=== PATIENT | female | born 1960 | race Caucasian/White ===

== ENCOUNTER → 2023-10-30 15:12 | Outpatient (REF) | payer OTHER, SELFPAY | LOC: HWRAD 15:12 | PROVIDERS: ATTENDING PHYSICIAN Internal Medicine | DX: Z13.820 Encounter for screening for osteoporosis (principal) | CPT/HCPCS: 77080 ==

== ENCOUNTER 2024-11-26 09:33 | Emergency (ER) | payer BC, SELFPAY ==
[2024-11-26 09:43] VITALS: BP 139/101
[2024-11-26 10:31] VITALS: BP 136/81; BMI 24.9
--- NOTE | 2024-11-26 11:10 | ED.GENMED ---
History of Present Illness
General
Chief Complaint: Crisis Evaluation
Source: patient
Exam Limitations: none
Time Seen by Provider: 11/26/24 10:17
Nursing documentation reviewed up to this point in time: agreed with
History of Present Illness
History of Present Illness:
64 yr. old female brought to the ER by for evaluation of depression and suicidal thoughts. Patient was evaluated by crisis prior to my exam and does feel that patient is suicidal and she will need placement either voluntary or
involuntary. Patient presents awake alert she is withdrawn and is not very forthcoming with history. When I ask if she is suicidal she says yes she does not answer me if I ask her about a plan but she does shake her head no.
at bedside. She reports this started after she was laid off of work in September. He reports that she is very paranoid about getting sued from her former employee.
She is followed by family doctor for depression and is on antidepression medicine. Also reports family doctor suggested that she come to the ER today.
Patient has no physical complaints.
Past History
Past History
ED Past Medical History: GERD, Psychiatric (Depression) and Other (esophageal ulceration [address] Llanos)
ED Past Surgical History: Other (Acoustic neuroma removal)
Social History
Tobacco: Non-smoker
Alcohol: None
Drug: None
Personal:
Living: with family
Employment: Employed
Review of Systems
Review of Systems
Allergies reviewed?: Yes
Other source history: family
All Other Systems: ROS reviewed and negative except as documented in HPI and ROS
Constitutional: Reports no symptoms; Denies fever, fatigue or chills
Respiratory: Reports no symptoms
Cardiac: Reports no symptoms
ABD/GI: Reports no symptoms
Musculoskeletal: Reports no symptoms
Skin: Reports no symptoms
Neurological: Reports no symptoms
Psychiatric: Reports depression and suicidal
Phy Exam
General Physical Exam
General Presentation: no apparent distress
General age: appears stated age
General Skin: warm and dry
General Habitus: normal
General Mental: alert
General Hydration: appears well hydrated
Cardiovascular Exam
Cardiovascular Exam: regular rate/rhythm, no murmur and normal peripheral pulses
Pulmonary Exam
Pulmonary Exam: lungs clear and no respiratory distress
Neurological Exam
Neurological Exam: alert
Musculoskeletal Exam
Musculoskeletal Exam: full ROM
Skin Exam
Skin Exam: normal color and warm/dry
Psychiatric Exam
Psychiatric Exam: suicidal and other (flat affect withdrawn admits to feeling suicidal )
Course
Orders/Labs/Results
Orders:
Orders
11/26/24 09:51
1:1 Observation - Suicide/ Violent Behavior As Directed
Crisis Consult Urgent
Reason for Consult: SI
11/26/24 10:58
1:1 Observation - Suicide/ Violent Behavior As Directed
11/26/24 11:17
Acetaminophen Urgent
Alcohol Urgent
Complete Blood Count/With Diff Urgent
Comprehensive Metabolic Panel Urgent
Salicylate Urgent
11/26/24 15:09
Gabapentin [Neurontin] 300 mg PO NOW STA
Abnormal Lab Results
11/26/24
11:17
RDW 14.6 H %
(11.5-14.5)
Abs Immat Gran (auto) 0.1 H 10^3/uL
(0-0.05)
Absolute Neuts (auto) 6.7 H 10^3/uL
(1.4-6.5)
Absolute Monos (auto) 0.7 H 10^3/uL
(0.1-0.6)
Immature Gran % 0.6 H %
(0-0.5)
Lymphocytes % 17.0 L %
(20.5-51.1)
Potassium 3.4 L mmol/L
(3.5-5.1)
Carbon Dioxide 31 H mmol/L
(22-30)
Creatinine 0.5 L mg/dL
(0.6-1.0)
Glucose 114 H mg/dl
(70-99)
AST 38 H U/L
(14-36)
ALT 44 H U/L
(0-35)
Salicylates < 1.0 L mg/dl
(2.0-20.0)
Acetaminophen < 10 L ug/ml
(10-30)
11/26/24 11:17
11/26/24 11:17
Vital Signs
Initial and Last Documented VS:
Initial Vital Signs
Temp Pulse Resp BP Pulse Ox
98.5 F 111 18 139/101 98
11/26/24 09:43 11/26/24 09:43 11/26/24 09:43 11/26/24 09:43 11/26/24 09:43
Last Documented Vital Signs
Temp Pulse Resp BP Pulse Ox
98.2 F 96 18 162/95 97
11/26/24 16:51 11/26/24 16:51 11/26/24 16:51 11/26/24 16:51 11/26/24 16:51
MDM/Problems Addressed
MDM/Problems Addressed:
Patient presented with for suicidal ideation very flat affect were withdrawn. She did make crisis aware that she was trying to access patient's guns but she did not discuss this with me or offer this. She is cooperative awake alert. She
was eval by crisis. She does shake her head to feeling suicidal. She has a flat withdrawn affect. She has no physical complaints.
She was eval by crisis and accepted to [facility]
*Critical Care Note
Total Time (30-74mins, 75-104mins- exclusive of procedures): Not Applicable
ED Attending Note
-
Portions of this chart may have been created with voice recognition software.� Occasional wrong word or��sound alike� substitutions may have occurred due to the inherent limitations of voice recognition software.
Discharge Plan
Departure
Patient Disposition: Psych Facility
Date of Disposition: 11/26/24
Time of Disposition: 15:10
Patient with high blood pressure during this ER visit?: Yes
Condition: Fair
Covid-19: Not Applicable
Discharge Problem:
suicidal ideation
Prescriptions:
No Action
venlafaxine 75 MG capsule,extended release 24hr
150 mg PO DAILY
hydroxyzine HCl 25 mg Tablet
25 mg PO TID PRN (Reason: anxiety)
aripiprazole 5 mg Tablet
5 mg PO DAILY
Referrals:
Anne Gandhi MD [Family Provider] -
Interventions
Interventions:
*Risk Screen - Suicide Last Done: 11/26/24 09:43
*General Assessment Last Done: 11/26/24 10:31
*Neglect/Abuse Screening Last Done: 11/26/24 10:31
*ED- Fall Risk Assessment Last Done: 11/26/24 10:31
*ED COVID-19 Vaccine History Last Done: 11/26/24 10:31
*Nursing Disposition Last Done: 11/26/24 18:12
ED-Psychological Assessment Last Done: 11/26/24 10:31
Discharge Date and Time
Discharge Date/Time: 11/26/24 18:14
Print Language: K[place]ILI
[2024-11-26 11:46] LABS: % Basophils 0.7 % (0-2); % Eosinophils 0.7 % (0-6); % Immature Granulocytes 0.6 % (0-0.5); % Monocytes 7.4 % (1.7-9.3); % Neutrophils 73.6 % (42.2-75.2); Absolute Basophils 0.1 10^3/uL (0-0.2); Absolute Eosinophils 0.1 10^3/uL (0-0.7); Absolute Immature Granulocytes 0.1 10^3/uL (0-0.05); Absolute Lymphocytes 1.5 10^3/uL (1.2-3.4); Absolute Monocytes 0.7 10^3/uL (0.1-0.6); Absolute Neutrophils 6.7 10^3/uL (1.4-6.5); Hematocrit 39.6 % (37.0-47.0); Hemoglobin 13.2 g/dL (12.0-16.0); Mean Corp Hgb Conc. 33.3 g/dL (33.0-37.0); Mean Corpuscular Hgb 29.5 pg (27.0-31.0); Mean Corpuscular Volume 88.6 fL (81.0-99.0); Mean Platelet Volume 9.6 fL (7.4-10.4); Nucleated Red Blood Cells % 0 %; Platelet Count 335 10^3/uL (130-400); Red Blood Cell Count 4.47 10^6/uL (4.20-5.40); Red Cell Dist. Width 14.6 % (11.5-14.5); White Blood Cell Count 9.1 10^3/uL (4.8-10.8)
[2024-11-26 11:47] LABS: ALT (SGPT) 44 U/L (0-35); AST (SGOT) 38 U/L (14-36); Albumin 4.1 g/dl (3.5-5.0); Alkaline Phosphatase 56 U/L (38-126); Blood Urea Nitrogen 16 mg/dl (7-17); Calcium 9.6 mg/dl (8.4-10.2); Carbon Dioxide 31 mmol/L (22-30); Chloride 101 mmol/L (98-107); Estimated Creatinine Clearance 82 ml/min; Glucose 114 mg/dl (70-99); Potassium 3.4 mmol/L (3.5-5.1); Sodium 138 mmol/L (135-145); Total Bilirubin 0.7 mg/dl (0.2-1.3); Total Protein 6.3 g/dl (6.3-8.2); eGFR > 60.00
[2024-11-26 12:02] LABS: Acetaminophen < 10 ug/ml (10-30); Salicylate < 1.0 mg/dl (2.0-20.0)
[2024-11-26 12:08] LABS: Alcohol None Detected
[2024-11-26 16:51] VITALS: BP 162/95
== END 2024-11-26 18:14 ==
LOC: EMR 09:33
PROVIDERS: Nurse Practitioner; EMERGENCY PHYSICIAN Emergency Medicine; FAMILY PHYSICIAN Internal Medicine
DX: R45.851 Suicidal ideations (principal); R03.0 Elevated blood-pressure reading, without diagnosis of hypertension; F32.A Depression, unspecified
CPT/HCPCS: 99285; 80053; 80143; 80179; 82077; 85025

== ENCOUNTER 2025-03-29 17:20 | Emergency (ER) | payer BC, SELFPAY ==
[2025-03-29 17:22] VITALS: BP 115/76
--- NOTE | 2025-03-29 18:35 | ED.GENMED ---
History of Present Illness
General
Chief Complaint: Bowel Problem
Source: patient
Exam Limitations: none
Time Seen by Provider: 03/29/25 18:24
History of Present Illness
History of Present Illness:
See MDM
Past History
Past History
ED Past Medical History: GERD, Psychiatric (Depression) and Other (esophageal ulceration [address] Llanos)
ED Past Surgical History: Other (Acoustic neuroma removal)
Social History
Tobacco: Non-smoker
Alcohol: None
Drug: None
Personal:
Living: with family
Employment: Employed
Phy Exam
Physical Exam
Physical Exam:
See MDM
Course
Orders/Labs/Results
Orders:
Orders
03/29/25 18:34
0.9% Sodium Chloride 1000 ml [Nss] 1,000 ml IV BOLUS
03/29/25 18:44
Complete Blood Count/With Diff Urgent
Comprehensive Metabolic Panel Urgent
03/29/25 19:16
Pantoprazole 80 mg/100 ml Nss [Protonix] 80 mg in 100 ml .ROUTE .STK-MED
03/29/25 19:18
Pantoprazole [Protonix IV] 40 mg .ROUTE .STK-MED ONE
03/29/25 19:53
Urinalysis Reflex To Culture Urgent
Date Specimen was Collected: 03/29/25
Time Specimen was Collected: 19:52
Urine Microscopic Reflex Cult Urgent
Urine Culture Urgent
NAHOMY Source: U
Specimen Description:
Date Specimen was Collected: 03/29/25
Time Specimen was Collected: 19:52
03/29/25 20:10
Lorazepam [Ativan] 1 mg PO NOW STA
03/29/25 20:45
Fosfomycin [Monurol] 3 gm PO ONCE ONE
Abnormal Lab Results
03/29/25 03/29/25
18:44 19:53
WBC 11.5 H 10^3/uL
(4.8-10.8)
RDW 14.6 H %
(11.5-14.5)
Absolute Neuts (auto) 8.8 H 10^3/uL
(1.4-6.5)
Absolute Monos (auto) 0.8 H 10^3/uL
(0.1-0.6)
Neutrophils % 76.8 H %
(42.2-75.2)
Lymphocytes % 14.6 L %
(20.5-51.1)
BUN 18 H mg/dl
(7-17)
Creatinine 0.5 L mg/dL
(0.6-1.0)
Glucose 101 H mg/dl
(70-99)
Total Protein 6.0 L g/dl
(6.3-8.2)
Ur Occult Blood Reflex 4+ A
(Negative)
Leukocyte Esterase Rfl 3+ A
(Negative)
Urine RBC 3-6 A /HPF
(0-2)
Urine WBC (Reflex) 11-15 A /HPF
(0-5)
Urine Bacteria (Reflex) Few A
(Negative)
Urine Albumin (Reflex) 2+ A
(Neg - Trace)
03/29/25 18:44
03/29/25 18:44
Vital Signs
Initial and Last Documented VS:
Initial Vital Signs
Temp Pulse Resp BP Pulse Ox
98.2 F 78 15 115/76 97
03/29/25 17:22 03/29/25 17:22 03/29/25 17:22 03/29/25 17:22 03/29/25 17:22
Last Documented Vital Signs
Temp Pulse Resp BP Pulse Ox
98.2 F 78 15 136/77 99
03/29/25 17:22 03/29/25 17:22 03/29/25 17:22 03/29/25 19:51 03/29/25 19:53
MDM/Problems Addressed
Differential Diagnosis Includes:
HPI and MDM Narrative:
65-year-old female presenting for evaluation of decreased defecation and decreased urination. She does have cognitive issues, per at bedside. She has been having trouble with constipation but had a small bowel earlier today. She is able
to urinate but states it is decreased and she complains of pain when she urinates.
She does acknowledge that she has had decreased p.o. intake. We discussed constipation as a root cause.
Her abdomen is soft and nontender. Mildly dry mucous membranes.
Rectal exam performed with nurse Fabiola at bedside. No stool in rectal vault
Will obtain basic blood work and provide IV fluid and will obtain urinalysis
Physical exam
General: Well appearing and non-toxic
HEENT: protecting airway. Dry mucous membranes
Neck: appears supple
CV: No evidence of cyanosis
Resp: No accessory muscle use
Abd: Non-distended. Soft and nontender
Rectal: No stool in the vault
Extremities: No deformities
Neuro: alert
Psych: Normal affect
Skin: Intact
Problems Addressed including Acute and Chronic Conditions affecting care:
1. Constipation
Acuity: acute
Prognosis: stable
Details: Will provide IV fluids and discussed increased fluid intake.
2. Painful urination
Acuity: acute
Prognosis: stable
Details: Will obtain urinalysis
Updates
Blood work without significant abnormality. Urinalysis concerning for mild urinary tract infection. There is concern for medication compliance. Will give dose of Monurol. feels comfortable taking her home
requesting medicine to help her sleep. Will give dose of Ativan
Differential Diagnosis (but not limited to): Constipation, kidney injury, UTI
Testing considered: Abdominal x-ray
Drug therapy (if applicable): OTC meds, please see d/c instruction regarding Rx drugs
Amount and/or Complexity of Data Reviewed
Clinical info obtained from: Patient and
External data reviewed: N/A
Labs I independently reviewed (but not limited to): Urinalysis, mild leukocytosis
Radiology: N/A
Pulse Ox: not hypoxic
EKG independently reviewed: N/A
Welder Assembler: N/A
Critical Care: N/A
Risk of Complication:
Social Determinants of health: Good social support
Discussed with other providers: N/A
Escalation of Care includes Admit/Obs: After being observed in the Emergency Department, pt stable for discharge.
Occasional wrong word or 'sound a like' substitutions may have occurred due to the inherent limitations of voice recognition software. Read the chart carefully and recognize, using context, where substitutions have occurred.
*Pulse Oximetry
SaO2: 97
Oxygen Mode of Delivery: Room air
Patient hypoxic: no
*Critical Care Note
Total Time (30-74mins, 75-104mins- exclusive of procedures): Not Applicable
ED Attending Note
-
Portions of this chart may have been created with voice recognition software.� Occasional wrong word or��sound alike� substitutions may have occurred due to the inherent limitations of voice recognition software.
Discharge Plan
Departure
Patient Disposition: Home (Routine Discharge)
Date of Disposition: 03/29/25
Time of Disposition: 20:48
Patient with high blood pressure during this ER visit?: No
Discharge Problem:
Acute UTI, Constipation, Dehydration
Instructions: Urinary tract infections in adults, Constipation, Adult (DC)
Prescriptions:
No Action
venlafaxine 75 MG capsule,extended release 24hr
150 mg PO DAILY
hydroxyzine HCl 25 mg Tablet
25 mg PO TID PRN (Reason: anxiety)
aripiprazole 5 mg Tablet
5 mg PO DAILY
Referrals:
Charleston,Anne M., MD [Family Provider, Internal Medicine]
Activity Restrictions/Additional Instructions:
Please return for any worsening symptoms.
You may return at any time if you have further concerns.
Please follow up with your doctor at the first available appointment, preferably this week.
Please increase your water intake. If you still have constipation issues tomorrow, please start MiraLAX for the next few days.
Thank you for choosing [facility].
Interventions
Interventions:
*Risk Screen - Suicide Last Done: 03/29/25 17:22
*General Assessment Last Done: 03/29/25 17:22
*Neglect/Abuse Screening Last Done: 03/29/25 17:22
*ED- Fall Risk Assessment Last Done: 03/29/25 18:46
*ED COVID-19 Vaccine History Last Done: 03/29/25 18:46
BW-Kiqqjg-Xusvrbtkwf Assessment Last Done: 03/29/25 18:46
Discharge Date and Time
Print Language: MALTESE
[2025-03-29 18:45] VITALS: BP 121/76
[2025-03-29] MEDS: NSS 1000 IV (18:47)
[2025-03-29 18:50] LABS: Hematocrit 37.7 % (37.0-47.0); Hemoglobin 12.5 g/dL (12.0-16.0); Mean Corp Hgb Conc. 33.2 g/dL (33.0-37.0); Mean Corpuscular Volume 89.1 fL (81.0-99.0); Nucleated Red Blood Cells % 0 %; Platelet Count 231 10^3/uL (130-400); Red Cell Dist. Width 14.6 % (11.5-14.5)
[2025-03-29 19:00] VITALS: BP 122/76
[2025-03-29 19:12] LABS: ALT (SGPT) 12 U/L (0-35); AST (SGOT) 14 U/L (14-36); Albumin 3.6 g/dl (3.5-5.0); Alkaline Phosphatase 54 U/L (38-126); Blood Urea Nitrogen 18 mg/dl (7-17); Calcium 10.1 mg/dl (8.4-10.2); Carbon Dioxide 28 mmol/L (22-30); Chloride 104 mmol/L (98-107); Estimated Creatinine Clearance 73 ml/min; Glucose 101 mg/dl (70-99); Potassium 4.0 mmol/L (3.5-5.1); Sodium 137 mmol/L (135-145); Total Protein 6.0 g/dl (6.3-8.2); eGFR > 60.00
[2025-03-29 19:51] VITALS: BP 136/77
[2025-03-29 20:00] VITALS: BP 127/83
[2025-03-29 20:01] LABS: Urine Character Cloudy (Clear)
[2025-03-29 20:10] LABS: Urine Squamous Cell 0-2 /LPF (Few)
[2025-03-29 20:56] VITALS: BP 126/69
[2025-03-29] MEDS: MONUROL 3 GM PO (20:57)
[2025-03-29] MEDS: ATIVAN 1 MG PO (20:57)
== END 2025-03-29 21:07 | disposition home or self-care (01) ==
LOC: EMR 17:20
PROVIDERS: EMERGENCY PHYSICIAN Student in an Organized Health Care Education/Training Program; FAMILY PHYSICIAN Internal Medicine
DX: N39.0 Urinary tract infection, site not specified (principal); K59.00 Constipation, unspecified; E86.0 Dehydration
CPT/HCPCS: 96360; 99284; 80053; 81003; 81015; 85025; 87086

== ENCOUNTER → 2025-04-16 10:49 | Outpatient (REF) | payer BC, SELFPAY ==
[2025-04-16 12:07] LABS: Hematocrit 40.3 % (37.0-47.0); Hemoglobin 13.4 g/dL (12.0-16.0); Mean Corp Hgb Conc. 33.3 g/dL (33.0-37.0); Mean Corpuscular Volume 87.8 fL (81.0-99.0); Nucleated Red Blood Cells % 0 %; Platelet Count 265 10^3/uL (130-400); Red Cell Dist. Width 14.7 % (11.5-14.5)
[2025-04-16 12:42] LABS: ALT (SGPT) 11 U/L (0-35); AST (SGOT) 15 U/L (14-36); Albumin 3.9 g/dl (3.5-5.0); Alkaline Phosphatase 53 U/L (38-126); Blood Urea Nitrogen 20 mg/dl (7-17); Calcium 9.8 mg/dl (8.4-10.2); Carbon Dioxide 29 mmol/L (22-30); Chloride 105 mmol/L (98-107); Glucose 110 mg/dl (70-99); Potassium 3.6 mmol/L (3.5-5.1); Sodium 140 mmol/L (135-145); Total Protein 6.4 g/dl (6.3-8.2); eGFR > 60.00
[2025-04-17 18:12] LABS: Urine Character Clear (Clear)
[2025-04-17 18:51] LABS: Urine Squamous Cell 0-2 /LPF (Few)
[2025-04-17 18:52] LABS: Urine White Cell 0-2 /HPF (0-5)
== END ==
LOC: RAD 10:49
PROVIDERS: ATTENDING PHYSICIAN Nurse Practitioner Family; FAMILY PHYSICIAN Internal Medicine
DX: R63.4 Abnormal weight loss (principal); Z01.818 Encounter for other preprocedural examination
CPT/HCPCS: 36415; 71046; 76700; 80053; 81003; 81015; 84443; 85025; 93005